=== PATIENT | male | born 1965 | race Caucasian/White ===

== ENCOUNTER 2025-10-21 18:01 | Emergency (ER) | payer OTHER ==
[~2025-10-21] VITALS: Ht 175.3 cm; Wt 102.3 kg
[2025-10-21 18:43] LABS: PLATELET COUNT (AUTO) 264 K/uL (150-450); RED BLOOD CELL COUNT(AUTO) 5.09 MIL/uL (4.50-5.90); RED CELL DISTRIBUTION WIDTH 13.1 % (11.5-14.5); WHITE BLOOD COUNT (AUTO) 6.4 K/uL (4.5-11.0)
[2025-10-21 18:51] LABS: CALCIUM, TOTAL 8.0 mg/dL (8.8-10.5); CREATININE 0.97 mg/dL (0.60-1.30); GLOMERULAR FILTR. RATE CALC > 60 mL/min (>60); SODIUM SERUM 136 mmol/L (136-145); UREA NITROGEN, BLOOD 13 mg/dL (7-18)
[2025-10-21 18:53] LABS: GLUCOSE,RANDOM 439 mg/dL (70-110)
[2025-10-21 18:55] LABS: ASPARTATE AMINOTRANSFERASE 20 U/L (15-37); TOTAL PROTEIN, SERUM 6.3 g/dL (6.4-8.2)
[2025-10-21 18:56] LABS: ALCOHOL, BLOOD (SERUM) < 3 mg/dL (0-10)
[2025-10-21 19:00] VITALS: PULSE 83; RESP 18; O2SAT 96
[2025-10-21 19:04] LABS: TROPONIN I-HIGH SENSITIVITY 18 ng/L (<76)
[2025-10-21] MEDS: ALBUTEROL SULFATE 2.5 MG/0.5 ML NEB SOLUTION NEB ONE (19:05)
[2025-10-21] MEDS: IPRATROPIUM BROMIDE 0.5 MG/2.5 ML NEB SOLUTION NEB ONE (19:05)
[2025-10-21 19:06] VITALS: PULSE 81; RESP 18; O2SAT 96
[2025-10-21 19:18] LABS: COVID AG,FIA SOURCE NASAL SWAB
[2025-10-21 19:22] VITALS: PULSE 104; RESP 18; O2SAT 100
[2025-10-21] MEDS: INSULIN REGULAR, HUMAN 100 UNITS/ML IVP ONE (19:32)
[2025-10-21 19:39] LABS: SARS-COV2 (COVID) ANTIGEN,FIA Negative (Negative)
[2025-10-21 19:42] LABS: INFLUENZA TYPE A NEGATIVE FOR TYPE A (NEGATIVE); INFLUENZA TYPE B NEGATIVE FOR TYPE B (NEGATIVE)
[2025-10-21 20:12] LABS: APPEARANCE,URINE CLEAR (CLEAR); GLUCOSE, URINE (UA) >=1000 mg/dL (NEGATIVE); LEUKOCYTE ESTERASE ,URINE NEGATIVE (NEGATIVE); NITRATE,URINE NEGATIVE (NEGATIVE); OCCULT BLOOD,URINE NEGATIVE (NEGATIVE); PH,URINE DRUG SCREEN 6.0 (5.0-8.0); SPECIFIC GRAVITIY, URINE 1.035 (1.003-1.030)
[2025-10-21 20:19] LABS: ALCOHOL, URINE DRUG SCREEN NEGATIVE (NEGATIVE); AMPHET/METH SCREEN,URINE POSITIVE (NEGATIVE); BARBITURATE SCREEN, URINE NEGATIVE (NEGATIVE); CANNABINOID SCREEN,URINE POSITIVE (NEGATIVE); COCAINE SCREEN,URINE NEGATIVE (NEGATIVE); METHADONE SCREEN, URINE NEGATIVE (NEGATIVE)
[2025-10-21 20:46] LABS: SQUAMOUS EPITHELIAL CELL,UR Rare /LPF (None Seen)
[2025-10-21 21:20] LABS: ACETONE,BLOOD NEGATIVE (NEGATIVE)
[2025-10-21 22:27] VITALS: BP 133/90; PULSE 84; RESP 17; TEMP 98.505320; O2SAT 93
== END 2025-10-22 01:49 | disposition admitted as inpatient to this hospital (09) ==
LOC: EMS 18:01 → CANBEDREQ 10-22 01:27 → EMS 10-22 01:49
DX: J44.1 Chronic obstructive pulmonary disease with (acute) exacerbation (principal); E11.65 Type 2 diabetes mellitus with hyperglycemia; R07.89 Other chest pain; F15.90 Other stimulant use, unspecified, uncomplicated; F32.A Depression, unspecified; I11.0 Hypertensive heart disease with heart failure; I50.9 Heart failure, unspecified; F41.9 Anxiety disorder, unspecified; F12.90 Cannabis use, unspecified, uncomplicated; Z88.0 Allergy status to penicillin; Z20.822 Contact with and (suspected) exposure to COVID-19
CPT/HCPCS: 99285; 96374; 71045; 96375; 87426; 80048; 80076; 81001; 82009; 82962; 83735; 83880; 84484; 85025; 87804; 36415; 94640; 93005; 80307; J2919; G0480; J1815; J7613